=== PATIENT | male | born 1985 | race Caucasian/White ===

== ENCOUNTER 2018-10-30 13:17 | Emergency (ER) | payer MEDICAID, OTHER ==
[~2018-10-30] VITALS: Ht 170.2 cm; Wt 61.2 kg
[2018-10-30] MEDS ORDERED: ACETAMINOPHEN 325 MG TABLET ONE (14:38)
[2018-10-30] MEDS ORDERED: CEPHALEXIN MONOHYDRATE 500 MG CAPSULE PO ONE ×2 (14:38→15:00)
[2018-10-30 14:45] VITALS: BP 102/66
[2018-10-30] MEDS ORDERED: ACETAMINOPHEN 325 MG TABLET PO ONE (15:00)
== END 2018-10-30 14:56 | disposition home or self-care (01) ==
LOC: ER 13:26
DX: S00.01XA Abrasion of scalp, initial encounter (principal); S60.511A Abrasion of right hand, initial encounter; L03.811 Cellulitis of head [any part, except face]; W34.010A Accidental discharge of airgun, initial encounter; Y93.89 Activity, other specified; Y92.89 Other specified places as the place of occurrence of the external cause; Y99.8 Other external cause status
CPT/HCPCS: 99283; A6403